=== PATIENT | female | born 1950 ===

== ENCOUNTER 2022-10-10 13:51 | Outpatient (CLI) | payer MEDICARE, OTHER, SELFPAY ==
--- NOTE | ~2022-10-10 | XR_ITS ---
EXAMINATION: XR foot RT standing 2V, XR foot LT standing 2V DATE: 10/10/2022 15:12 INDICATION: Fatigue and joint pain TECHNIQUE: Line 1. Dorsoplantar and lateral views of the left foot were obtained. 2. Dorsoplantar and lateral views of the right foot were obtained. COMPARISON: None. FINDINGS: Bilateral pes planus, moderate on the left and mild on the right. No fractures. Mild polyarticular os teoarthritis at a few of the bilateral tarsometatarsal and interphalangeal joints. No erosions to sug gest inflammatory arthritis. Bilateral small Achilles calcaneal spurs and moderate-sized bilateral pl amy calcaneal spurs. IMPRESSION: 1. Bilateral pes planus, left greater than right. 2. Mild polyarticular osteoarthritis at a few of the bilateral tarsometatarsal and interphalangeal christen ints. Reviewed, dictated and finalized at location A. R SEWING MACHINE OPERATOR IMPRESSION: 1. Bilateral pes planus, left greater than right. 2. Mild polyarticular osteoarthritis at a few of the bilateral tarsometatarsal and interphalangeal joints.
--- NOTE | ~2022-10-10 | XR_ITS ---
EXAMINATION: HAND-GARETH ARTHRITIS 3+VIEWS DATE: 10/10/2022 15:12 INDICATION: Fatigue and joint pain TECHNIQUE: Posteroanterior, lateral, and oblique views of the left and of the right hands as well as a ballcatchers view of both hands were obtained. COMPARISON: None. FINDINGS: Severe osteoarthritis with likely secondary mild dorsal subluxation at the bilateral first carpal met acarpal joints. Alignment is otherwise normal at the bilateral hands. No fractures. Additional polyar ticular osteoarthritis, severe at the left fifth distal interphalangeal joint with central gullwing e rosions at the base of the distal phalanx consistent with erosive osteoarthritis. Moderate osteoarthr itis at the left second-fourth and right third-fifth distal interphalangeal joints. Mild polyarticula r osteoarthritis at the bilateral bilateral distal radioulnar and multiple metacarpophalangeal and ma ny of the remaining interphalangeal joints. No other erosions to suggest an inflammatory arthritis lamb ch as rheumatoid. Soft tissues are unremarkable. IMPRESSION: 1. 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 Reviewed, dictated and finalized at location A. ER CREELER IMPRESSION: 1. 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
[2022-10-10 15:02] LABS: Basophils Absolute Auto 0.1 K/mm3 (0.0-0.1); Basophils Percent Auto 0.7 % (0.2-1.2); Eosinophils Absolute Auto 0.3 K/mm3 (0-0.3); Eosinophils Percent Auto 3.8 % (0-4.4); Hematocrit 47.5 % (37.0-47.0); Hemoglobin 15.4 g/dL (12.0-15.0); Immature Granulocyte Absolute 0.01 K/mm3 (0.00-0.031); Immature Granulocyte Percent A 0.1 % (0-0.5); Lymphocytes Absolute Auto 1.83 K/mm3 (0.9-3.2); Lymphocytes Percent Auto 26.5 % (18.3-44.2); Mean Corpuscular HGB Conc 32.4 g/dl (32-36); Mean Corpuscular Hemoglobin 31.5 pg (26-34); Mean Corpuscular Volume 97.1 fl (80-100); Mean Platelet Volume 10.5 fl (7.4-10.4); Monocytes Absolute Auto 0.3 K/mm3 (0.1-0.6); Monocytes Percent Auto 4.9 % (2.6-8.5); Neutrophils Absolute Auto 4.4 K/mm3 (1.3-6.7); Platelet Count Result 279 k/mm3 (150-375); Red Blood Count 4.89 M/mm3 (4.2-5.4); Red Cell Distribution Width 12.8 % (11.5-14.5); White Blood Count 6.9 K/mm3 (4.5-10.0)
[2022-10-10 15:09] LABS: Creatinine Urine 175.6 mg/dL; Total Protein Urine Random 6 mg/dL; Ur Ttl Prot Creatinine Ratio 0.03 mg/mg (0-0.20)
[2022-10-10 15:49] LABS: Erythrocyte Sedimentation Rate 8 mm/hr (0-20)
[2022-10-10 15:52] LABS: Vitamin D 25 Hydroxy 57.8 ng/mL
[2022-10-10 15:54] LABS: Iron 59 ug/dL (37-170)
[2022-10-10 16:01] LABS: Alanine Aminotransferase 22 U/L (6-35); Albumin Level 4.9 g/dL (3.5-5.1); Alkaline Phosphatase 85 U/L (38-126); Anion Gap 9 mmol/L (8-16); Aspartate Amino Transferase 27 U/L (14-36); Bilirubin,Total 0.4 mg/dL (0.2-1.3); Blood Urea Nitrogen 22 mg/dL (7-17); CRP < 0.5 mg/dL (<1.0); Calcium 9.8 mg/dL (8.4-10.2); Carbon Dioxide 30 mmol/L (22-30); Chloride 103 mmol/L (98-107); Creatine Kinase 92 U/L (30-135); Estimated Glomerular Filt Rate > 60; Glucose 134 mg/dL (65-110); Lactate Dehydrogenase 192 U/L (120-246); Potassium 3.9 mmol/L (3.4-5.0); Sodium 142 mmol/L (137-145)
[2022-10-10 16:02] LABS: Percent Iron Saturation 19 % (20-50)
[2022-10-10 16:04] LABS: Complement C3 126 mg/dL (88-165); Rheumatoid Factor < 8.6 IU/ML (<12)
[2022-10-10 16:26] LABS: Appearance Urine Cloudy (Clear); Bacteria Urine None Seen /hpf; Bilirubin Urine Negative (Negative); Blood Urine Negative (Negative); Color Urine Yellow (Yellow); Glucose Urine UA Negative (Negative); Ketones Urine Trace mg/dL (Negative); Leukocyte Esterase Ur 1+ LEU/UL (Negative); Need Manual Microscopic Reviewed; Nitrate Urine Negative (Negative); Non Pathogenic Casts 0-2; Protein Urine Negative (Negative); Specific Grav Ur 1.025 (1.001-1.035); Squamous Epithelial Cell Urine Few /hpf (Few)
[2022-10-10 16:34] LABS: Add Urine Microscopic? YES
[2022-10-14 03:58] LABS: Thyroid Peroxidase Antibodies 1 IU/mL (<9)
[2022-10-15 04:13] LABS: Aldolase 5.9 U/L (<=8.1)
[2022-10-15 09:36] LABS: Chromatin Antibody <1.0; SM Antibody <1.0; SM/RNP Antibody <1.0; SS-A <1.0; SS-B <1.0
[2022-10-16 06:23] LABS: Lupus dRVVT Screen 37 sec (<=45); PTT-LA Screen 34 sec (<=40)
== END 2022-10-10 13:52 | disposition home or self-care (01) ==
PROVIDERS: Visit Provider Internal Medicine
DX: I27.20 Pulmonary hypertension, unspecified (principal); R53.83 Other fatigue; R76.8 Other specified abnormal immunological findings in serum; R89.9 Unspecified abnormal finding in specimens from other organs, systems and tissues; M19.041 Primary osteoarthritis, right hand; M19.042 Primary osteoarthritis, left hand; M19.071 Primary osteoarthritis, right ankle and foot; M19.072 Primary osteoarthritis, left ankle and foot
CPT/HCPCS: 36415; 73130; 73620; 80053; 81001; 82085; 82306; 82550; 82570; 83540; 83550; 83615; 84156; 85025; 85613; 85652; 85730; 86140; 86160; 86225; 86235; 86376; 86430; 87086; 87088

== ENCOUNTER 2023-11-12 15:11 | Outpatient (CLI) | payer MEDICARE, OTHER, SELFPAY ==
[2023-11-12 16:12] LABS: Alanine Aminotransferase 18 U/L (6-35); Albumin Level 4.5 g/dL (3.5-5.1); Alkaline Phosphatase 75 U/L (38-126); Anion Gap 5 mmol/L (4-12); Aspartate Amino Transferase 25 U/L (14-36); Bilirubin,Total 0.4 mg/dL (0.2-1.3); Blood Urea Nitrogen 25 mg/dL (7-17); Calcium 9.7 mg/dL (8.4-10.2); Carbon Dioxide 31 mmol/L (22-30); Chloride 102 mmol/L (98-107); Estimated Glomerular Filt Rate > 60; Glucose 86 mg/dL (65-110); Potassium 4.3 mmol/L (3.4-5.0); Sodium 138 mmol/L (137-145)
== END 2023-11-12 15:12 | disposition home or self-care (01) ==
PROVIDERS: Visit Provider Internal Medicine
DX: R76.8 Other specified abnormal immunological findings in serum (principal); M15.9 Polyosteoarthritis, unspecified; R53.83 Other fatigue
CPT/HCPCS: 36415; 80053